=== PATIENT | female | born 1995 | race Two or more races ===

== ENCOUNTER → 2021-02-09 | Outpatient (CLI) | payer OTHER ==
[2021-02-09 13:55] LABS: BASO % 0.4 % (0.0-1.0); EOS # 0.1 10^3/uL (0.0-0.5); EOS % 0.9 % (0.0-3.0); HEMATOCRIT 35.5 % (36.0-47.0); HEMOGLOBIN 11.8 g/dl (12.0-15.5); LYMPH # 2.1 10^3/uL (1.5-5.0); LYMPH % 19.2 % (24.0-44.0); MEAN CORPUSCULAR HEMOGLOBIN 31.1 pg (27.0-33.0); MEAN CORPUSCULAR HGB CONC 33.2 g/dl (32.0-36.5); MEAN CORPUSCULAR VOLUME 93.7 fl (80.0-96.0); MONO # 0.8 10^3/uL (0.0-0.8); MONO % 7.1 % (2.0-8.0); NEUTROPHILS # 7.9 10^3/uL (1.5-8.5); NEUTROPHILS % 71.7 % (36.0-66.0); PLATELET COUNT, AUTOMATED 297 10^3/uL (150-450); RED BLOOD COUNT 3.79 10^6/uL (4.00-5.40); WHITE BLOOD COUNT 11.1 10^3/uL (4.0-10.0)
[2021-02-09 15:12] LABS: HIV 1&2 SCREEN CENTAUR NEGATIVE (NEGATIVE)
[2021-02-09 15:36] LABS: GC DNA AMPLIFICATION NEGATIVE (NEGATIVE)
== END ==
LOC: M PLALAB 10:32
PROVIDERS: ATTEND Specialist
DX: Z34.82 Encounter for supervision of other normal pregnancy, second trimester (principal); Z36.89 Encounter for other specified antenatal screening

== ENCOUNTER → 2021-03-22 | Outpatient (CLI) | payer OTHER | LOC: M WHC 09:00 | PROVIDERS: ATTEND Obstetrics & Gynecology | DX: Z3A.17 17 weeks gestation of pregnancy (principal); Z34.92 Encounter for supervision of normal pregnancy, unspecified, second trimester; Z53.9 Procedure and treatment not carried out, unspecified reason ==

== ENCOUNTER → 2021-04-07 | Outpatient (CLI) | payer OTHER ==
--- NOTE | 2021-04-08 06:38 | REP ---
INDICATION: 17 WEEK GESTATION OF PREGNANY COMPARISON: None. TECHNIQUE: Transabdominal obstetrical ultrasound with color Doppler evaluation. FINDINGS: Examination demonstrates a single live intrauterine in variable presentation. motion is identified by technologist. Placenta is noted posterior and grade 0 without evidence for placenta previa or abruption. Amniotic fluid volume is normal. Cervix measures 4.9 cm in length and appears closed.. Selected gestational age: 20 weeks 1 day with ANN 08/24/2021. Gestational age by current measurements 20 weeks 3 days with ANN 08/22/2021. FHR equals 152 beats per minute. BPD: 4.8 cm at 20 weeks 3 days HC: 17.7 cm at 20 weeks 1 day AC: 15.3 cm at 20 weeks 4 days FL: 3.4 cm at 20 weeks 5 days HL: 3.2 cm at 20 weeks 4 days HC/AC: 1.16 Estimated weight 360 grams (67thpercentile). Anatomical assessment demonstrates normal structures including cranium, choroid plexus, cavum, cerebellum/posterior fossa, facial features, lungs, four-chamber heart/ventricular outflow tracts, diaphragm, stomach, cord insertion/three-vessel cord, kidneys/bladder, spine, and extremities. IMPRESSION: Single live intrauterine in variable presentation demonstrating appropriate estimated weight. Anatomical assessment is complete and normal. <Electronically signed by Lito Escobar > 04/08/21 0691
== END ==
LOC: M WHC 14:02
PROVIDERS: ATTEND Obstetrics & Gynecology
DX: Z36.89 Encounter for other specified antenatal screening (principal); Z3A.20 20 weeks gestation of pregnancy

== ENCOUNTER → 2021-05-18 | Outpatient (CLI) | payer OTHER ==
[2021-05-18 13:35] LABS: HEMATOCRIT 30.3 % (36.0-47.0); MEAN CORPUSCULAR HEMOGLOBIN 32.3 pg (27.0-33.0); MEAN CORPUSCULAR VOLUME 97.7 fl (80.0-96.0); PLATELET COUNT, AUTOMATED 235 10^3/uL (150-450); WHITE BLOOD COUNT 13.1 10^3/uL (4.0-10.0)
[2021-05-18 16:35] LABS: GC DNA AMPLIFICATION NEGATIVE (NEGATIVE)
== END ==
LOC: M LAB 08:27 → M PLALAB 08:27
PROVIDERS: ATTEND Specialist
DX: Z34.82 Encounter for supervision of other normal pregnancy, second trimester (principal)
CPT/HCPCS: 36415; 82950; 85027; 86850; 86900; 86901; 87491; 87591; G0463

== ENCOUNTER → 2021-07-27 | Outpatient (REF) | payer OTHER | LOC: M SFHCWAGY 13:01 | PROVIDERS: ATTEND Advanced Practice Midwife | DX: O22.43 Hemorrhoids in pregnancy, third trimester (principal); Z3A.00 Weeks of gestation of pregnancy not specified; Z36.85 Encounter for antenatal screening for Streptococcus B | CPT/HCPCS: 87081; G0463 ==

== ENCOUNTER 2021-08-21 13:20 | Inpatient (IN) | payer OTHER ==
[2021-08-21] VITALS (8 sets, daily range): BP systolic 113–150; BP diastolic 63–83
[~2021-08-21] VITALS: Ht 177.8 cm; Wt 93.4 kg
[2021-08-21] MEDS ORDERED: OXYTOCIN 30 UNITS IN 0.9% NaCl 500ML IV BAG (J2590) As Ordered ONE (13:54)
[2021-08-21] MEDS ORDERED: PRENTAB9 PO (13:57)
[2021-08-21] MEDS ORDERED: METHYLERGONOVINE MALEATE 0.2 MG/ML VIAL (J2210) IM PRN (14:10)
[2021-08-21] MEDS ORDERED: TRANEXAMIC ACID INJection 1,000 MG in NS 100 ML IV PRN (14:10)
[2021-08-21] MEDS ORDERED: CARBOPROST TROMETHAMINE 250 MCG/ML AMP IM PRN (14:10)
[2021-08-21 14:13] LABS: HEMATOCRIT 33.9 % (36.0-47.0); HEMOGLOBIN 11.4 g/dl (12.0-15.5); MEAN CORPUSCULAR HEMOGLOBIN 31.3 pg (27.0-33.0); MEAN CORPUSCULAR HGB CONC 33.6 g/dl (32.0-36.5); MEAN CORPUSCULAR VOLUME 93.1 fl (80.0-96.0); PLATELET COUNT, AUTOMATED 231 10^3/uL (150-450); RED BLOOD COUNT 3.64 10^6/uL (4.00-5.40); WHITE BLOOD COUNT 12.8 10^3/uL (4.0-10.0)
[2021-08-21] MEDS ORDERED: LR 1,000 ML IV SCH (14:15)
[2021-08-21] MEDS ORDERED: DOCUSATE SODIUM 100MG CAPSULE PO PRN (14:15)
[2021-08-21] MEDS ORDERED: OXYTOCIN DRIP 30 UNITS in IV 1 EA IV SCH (14:15)
[2021-08-21] MEDS ORDERED: IBUPROFEN 600MG TAB PO PRN (14:15)
[2021-08-21] MEDS ORDERED: MEASLES,MUMPS,RUBELLA VACCINE INJ (MMR-II) (90707) SC SCH (14:15)
[2021-08-21] MEDS ORDERED: METHYLERGONOVINE MALEATE 0.2 MG TAB PO PRN (14:15)
[2021-08-21] MEDS ORDERED: DIBUCAINE 1% OINTMENT 30GM TOP PRN (14:15)
[2021-08-21] MEDS ORDERED: IBUPROFEN 800 MG TAB PO PRN (14:15)
[2021-08-21] MEDS ORDERED: KETOROLAC 30 MG/ML 1ML VIAL IV ONE (14:20)
[2021-08-22 06:30] VITALS: BP 120/75
[2021-08-22] MEDS ORDERED: PRENATAL VITAMINS CHEWABLE TABLET PO SCH (09:00)
[2021-08-22] MEDS: RHOGAM 300 MCG (1500 IU) INJ (J2790) IM SCH ×2 (09:06→09:54)
[2021-08-22] MEDS ORDERED: IBUP80TA PO (15:01)
== END 2021-08-22 15:51 | disposition home or self-care (01) | DRG 807 ==
LOC: M LDO 13:20 → M LDI 13:44 → M OBS 16:47
PROVIDERS: ADMIT Obstetrics & Gynecology; ATTEND Obstetrics & Gynecology
PROC: 10E0XZZ Delivery of Products of Conception, External Approach (ICD-10-PCS; principal; 2021-08-21)
DX: O80 Encounter for full-term uncomplicated delivery (principal); Z37.0 Single live birth; Z3A.39 39 weeks gestation of pregnancy

== ENCOUNTER → 2021-12-14 | Outpatient (REF) | payer OTHER ==
[~2021-12-14] MED LIST: IBUP80TA PO; PRENTAB9 PO
== END ==
LOC: M SFHCWAGY 13:09
PROVIDERS: ATTEND Obstetrics & Gynecology
DX: Z12.4 Encounter for screening for malignant neoplasm of cervix (principal)

== ENCOUNTER 2022-04-23 12:45 | Emergency (ER) | payer OTHER ==
[~2022-04-23] VITALS: Ht 175.3 cm; Wt 80.1 kg
[2022-04-23 14:02] VITALS: BP 116/78
== END 2022-04-23 14:06 | disposition home or self-care (01) ==
LOC: M ED 12:45
DX: S92.531A Displaced fracture of distal phalanx of right lesser toe(s), initial encounter for closed fracture (principal); W22.8XXA Striking against or struck by other objects, initial encounter; Z79.899 Other long term (current) drug therapy; Z88.6 Allergy status to analgesic agent

== ENCOUNTER → 2022-05-02 | Outpatient (CLI) | payer OTHER | LOC: M SOG 13:04 | PROVIDERS: ATTEND Physician Assistant | DX: S92.511A Displaced fracture of proximal phalanx of right lesser toe(s), initial encounter for closed fracture (principal); X58.XXXA Exposure to other specified factors, initial encounter; Y92.9 Unspecified place or not applicable; Y93.9 Activity, unspecified; Y99.9 Unspecified external cause status ==